=== PATIENT | female | born 1945 | race Caucasian/White ===

== ENCOUNTER → 2017-12-01 11:00 | Outpatient (CLI) | payer MEDICARE, OTHER, SELFPAY ==
--- NOTE | 2017-12-01 | DI.MG.S_ITS ---
BILATERAL DIGITAL SCREENING MAMMOGRAM 3D/2D WITH CAD: 12/01/2017 CLINICAL: Routine screening. Comparison is made to exams dated: 04/22/2016 mammogram, 11/28/2014 mammogram, and 01/30/2013 mammogram - [facility]. There are scattered fibroglandular elements in both breasts. Current study was also evaluated with a Computer Aided Detection (CAD) system. No significant masses, calcifications, or other findings are seen in either breast. There has been no significant interval change. IMPRESSION: NEGATIVE There is no mammographic evidence of malignancy. A 1 year screening mammogram is recommended. This exam was interpreted at Station ID: [id number]. NOTE: For mammograms, a report in lay terms will be sent to the patient. Approximately 15% of breast malignancies will not be visualized mammographically. In the management of a palpable breast mass, a negative mammogram must not discourage biopsy of a clinically suspicious lesion. Electronically Signed By: Antonino du/rober:12/01/2017 11:49:33 letter sent: Normal Exam ACR BI-RADS Category 1: Negative 3341F
== END ==
PROVIDERS: Family Provider Nurse Practitioner; PCP Nurse Practitioner; Visit Provider Family Medicine
DX: Z12.31 Encounter for screening mammogram for malignant neoplasm of breast (principal)
CPT/HCPCS: 77063; 77067

== ENCOUNTER → 2019-03-30 15:01 | Outpatient (CLI) | payer MEDICARE, OTHER, SELFPAY ==
--- NOTE | 2019-03-30 | DI.MG.S_ITS ---
BILATERAL DIGITAL SCREENING MAMMOGRAM 3D/2D WITH CAD: 03/30/2019 CLINICAL: Routine screening. Comparison is made to exams dated: 12/01/2017 mammogram, 04/22/2016 mammogram, and 11/28/2014 mammogram - [facility]. There are scattered fibroglandular elements in both breasts. Current study was also evaluated with a Computer Aided Detection (CAD) system. There are benign vascular calcifications in both breasts. No significant masses, calcifications, or other findings are seen in either breast. There has been no significant interval change. IMPRESSION: There is no mammographic evidence of malignancy. A 1 year screening mammogram is recommended. This exam was interpreted at Station ID: [id number]. NOTE: For mammograms, a report in lay terms will be sent to the patient. Approximately 15% of breast malignancies will not be visualized mammographically. In the management of a palpable breast mass, a negative mammogram must not discourage biopsy of a clinically suspicious lesion. Electronically Signed By: Linda mullins/rober:03/30/2019 16:02:36 letter sent: Normal Exam ACR BI-RADS Category 2: Benign Finding(s) 3342F
== END ==
PROVIDERS: PCP Nurse Practitioner; Visit Provider Family Medicine
DX: Z12.31 Encounter for screening mammogram for malignant neoplasm of breast (principal)
CPT/HCPCS: 77063; 77067

== ENCOUNTER 2019-08-16 07:43 | Day surgery (SDC) | payer MEDICARE, OTHER, SELFPAY ==
--- NOTE | 2019-08-16 | PATH_ITS ---
[facility] [place] Accession Number: [id number] . 01 Material submitted: . gastrointestinal site - GASTRIC BIOPSIES . 02 Diagnosis: Gastric Biopsies: Gastric body mucosa with mild chronic inflammation. Negative for Helicobacter organisms by immunohistochemistry. Negative for intestinal metaplasia. Negative for dysplasia or malignancy. V 08/20/2019 1352 Local . 02 Electronically signed: . Hiro Jones MD, PhD, Pathologist NPI- [id number] . 01 Gross description: . GASTRIC BIOPSIES: Received in formalin are multiple fragment(s) of hodge, soft tissue measuring 0.1 x 0.1 x 0.1 cm to 0.2 x 0.2 x 0.2 cm submitted entirely in 1 cassette(s) /[facility] 08/16/2019 2228 Local . 02 Microscopic: . An immunohistochemical stain was performed to evaluate for Helicobacter organisms and is negative. The control stain showed appropriate reactivity. . * This test was developed and its performance characteristics determined by [facility]. It has not been cleared or approved by the U.S. Food and Drug Administration. The FDA has determined that such clearance or approval is not necessary. This test is used for clinical purposes. It should not be regarded as investigational or for research. . 02 Pathologist provided ICD-10: K29.70 . 02 CPT . 643584, U08057 Performed at: 01 [facility] [address], [place], [place] [id number] MD Andrew Randhawa MD Phone: [phone] Performed at: 02 [facility] [place] [address] [place], [place] [id number] MD Gloria Ruiz MD Phone: [phone]
[2019-08-16 09:48] VITALS: BMI 34.9
[2019-08-16 09:53] VITALS: BP 130/71; PULSE 64; RESP 12; TEMP 36.1; O2SAT 100
--- NOTE | 2019-08-16 10:32 | PM.PREOP ---
Pre-operative Note Interval Note History & Physical reviewed/Exam performed by Physician: Yes Changes to H&P: No ASA Class (for procedural sedation): II
[2019-08-16] MEDS: LIDOCAINE 4% SOLN 50 ML 20 ML TOP (10:51)
[2019-08-16] MEDS: fentaNYL 250 MCG/5 ML INJ IV (10:52)
[2019-08-16] MEDS: MIDAZOLAM 5 MG/5 ML VIAL IV (10:52)
--- NOTE | 2019-08-16 10:52 | PM.OP.ENDO ---
Operative Date/Time/Diagnoses Date of procedure: 08/16/19 Time of procedure: 10:53 Pre-op diagnosis: Epigastric discomfort reflux disease Post-op diagnosis: same (Small patchy areas of significant gastritis with cobblestoning) Procedure & Clinicians Study performed: EGD with cold biopsy Same procedure as scheduled: Yes Indications: Evaluate reflux/epigastric pain Surgeon: Chilango Mac Procedure Notes SCOAP/Timeout: Performed Procedure in detail: The patient had topical anesthetic applied to oropharynx. She was placed in left lateral decubitus position and underwent IV sedation directed by the surgeon consisting of fentanyl and Versed. A bite block was inserted and the scope was advanced through it into the esophagus. The esophagus was unremarkable. GE junction was noted at 38 cm from the incisors. The stomach insufflated well. There were multiple red patchy lesions seen in the body, cardia and the incisura. The pyloric channel was narrowed but patent. The duodenum was unremarkable to the 4th part. The scope was brought back into the stomach and retroflexed. The proximal stomach was remarkable for the same areas of redness. Biopsies were taken of multiple red patches. The scope was straightened and brought out through the esophagus again. No lesions were seen. The scope was removed and the patient tolerated the procedure well. Scope withdrawal time: Not applicable Sedation minutes: 12 Findings: gastritis Specimen(s): other (Gastric biopsies) Complications: none Post-procedure Recommendations: Start medication(s) (Omeprazole) Plan for aftercare: Follow-up with your family doctor Follow up: as needed Disposition: PACU
[2019-08-16 10:58] VITALS: BP 122/61; PULSE 69; RESP 19; TEMP 36.2; O2SAT 97
[2019-08-16 11:03] VITALS: BP 117/54; PULSE 68; RESP 18; TEMP 36; O2SAT 100
[2019-08-16 11:08] VITALS: BP 103/70; PULSE 66; RESP 9; TEMP 36.1; O2SAT 99
[2019-08-16 11:27] VITALS: BP 117/76; PULSE 66; RESP 14; TEMP 36.1; O2SAT 99
== END 2019-08-16 11:38 | disposition home or self-care (01) ==
PROVIDERS: PCP Nurse Practitioner; Referring Provider Nurse Practitioner; Visit Provider Specialist
PROC: 0DJ08ZZ Inspection of Upper Intestinal Tract, Via Natural or Artificial Opening Endoscopic (ICD-10-PCS; CPT 43235; principal; 2019-08-16 10:45)
DX: K29.50 Unspecified chronic gastritis without bleeding (principal); K21.9 Gastro-esophageal reflux disease without esophagitis
CPT/HCPCS: 43239; 76700; 99152; J2250; J3010

== ENCOUNTER → 2019-08-16 07:56 | Outpatient (CLI) | payer MEDICARE, OTHER, SELFPAY ==
--- NOTE | 2019-08-16 07:58 | DI.US.S_ITS ---
PROCEDURE: US ABDOMEN COMPLETE INDICATIONS: NAUSEA TECHNIQUE: Real-time scanning was performed of the abdominal and retroperitoneal organs, with image documentation. COMPARISON: [facility], US, ABDOMEN COMPLETE, 05/11/2010, 13:48. FINDINGS: Liver: Liver is normal in size and homogeneous in echotexture, diffusely hyperechoic consistent with moderate fatty infiltration Gallbladder: The gallbladder appears normal. Biliary ducts: Intrahepatic bile ducts are non-dilated. Extrahepatic bile duct caliber measures 4.8 mm. Normal is 6-7 mm or less in diameter, or 10 mm or less post-cholecystectomy. Pancreas: Visualized portions of the pancreas are sonographically normal. Spleen: Spleen is normal in size and homogeneous in echotexture. Kidneys: Kidneys are normal in size and echotexture. Right kidney measures 10.2 cm long; left kidney measures 12.1 cm long. No hydronephrosis or nephrolithiasis. No solid masses. Aorta: Visualized aorta is normal in caliber at less than 3 cm. Iliacs: Not seen due to bowel gas. IVC: Intrahepatic inferior vena cava is patent. Miscellaneous: No free abdominal fluid. IMPRESSION: Moderate fatty infiltration throughout the liver. No acute disease is found. A source of nausea is not identified. Dictated by: Daniel Yang M.D. on 08/16/2019 at 9:31 Approved by: Daniel Yang M.D. on 08/16/2019 at 9:32
== END ==
PROVIDERS: PCP Nurse Practitioner; Referring Provider Specialist; Visit Provider Specialist
DX: R11.0 Nausea (principal)
CPT/HCPCS: 76700

== ENCOUNTER → 2021-10-14 11:22 | Outpatient (CLI) | payer MEDICARE, OTHER, SELFPAY ==
--- NOTE | 2021-10-14 11:25 | DI.MG.S_ITS ---
BILATERAL DIGITAL SCREENING MAMMOGRAM 3D/2D WITH CAD: 10/14/2021 CLINICAL: Routine screening. Comparison is made to exams dated: 03/30/2019 mammogram, 12/01/2017 mammogram, and 04/22/2016 mammogram - [facility]. There are scattered fibroglandular elements in both breasts. Current study was also evaluated with a Computer Aided Detection (CAD) system. There are benign vascular calcifications in both breasts. No significant masses, calcifications, or other findings are seen in either breast. There has been no significant interval change. IMPRESSION: BENIGN There is no mammographic evidence of malignancy. A 1 year screening mammogram is recommended. This exam was interpreted at Station ID: [id number]. NOTE: For mammograms, a report in lay terms will be sent to the patient. Approximately 15% of breast malignancies will not be visualized mammographically. In the management of a palpable breast mass, a negative mammogram must not discourage biopsy of a clinically suspicious lesion. Electronically Signed By: Luis Fernando Trammell M.D., jr/rober:10/14/2021 14:04:10 letter sent: Normal Exam ACR BI-RADS Category 2: Benign Finding(s) 3342F
== END ==
PROVIDERS: PCP Nurse Practitioner; Referring Provider Nurse Practitioner; Visit Provider Nurse Practitioner
DX: Z12.31 Encounter for screening mammogram for malignant neoplasm of breast (principal)
CPT/HCPCS: 77063; 77067

== ENCOUNTER 2021-11-25 14:47 | Emergency (ER) | payer MEDICARE, OTHER, SELFPAY ==
[2021-11-25 15:29] VITALS: BP 167/77; PULSE 66; RESP 16; TEMP 36.6; O2SAT 99; BMI 29.0
--- NOTE | 2021-11-25 19:15 | DI.CT.S_ITS ---
PROCEDURE: CT KIDNEY URETER BLADDER (KUB) INDICATIONS: left flank pain, hx stones TECHNIQUE: Axial sections were acquired from the lung bases to the pubic symphysis. Coronal and sagittal reformats were performed. For radiation dose reduction, the following was used: automated exposure control, adjustment of mA and/or kV according to patient size. COMPARISON: None. FINDINGS: Image quality: Excellent. Lung bases: Unremarkable. Heart: No significant findings. URINARY: Right Kidney: No stones or hydronephrosis. Right Ureter: No hydroureter. Left Kidney: No stones or hydronephrosis. Left Ureter: Possible 2 mm distal left ureteral stone best seen on axial image 55/series 2. No periureteral stranding. No hydroureter. Bladder: Normal wall thickness. No stones. ABDOMEN: Liver: Unremarkable. Gallbladder: Unremarkable. Biliary ducts: Unremarkable. Pancreas: Unremarkable. Spleen: Unremarkable. Adrenal Glands: Unremarkable. Stomach and Bowel: Stomach, small bowel loops, and colon are unremarkable. Normal appendix. Extensive scattered colonic diverticulosis without evidence for acute diverticulitis. Peritoneum: No abnormal intraperitoneal fluid. No free air. Ventral Wall: No hernia. Abdominal Nodes: No enlarged retroperitoneal or mesenteric lymph nodes. Vessels: Aorta and inferior vena cava are normal in size. PELVIS: Pelvic Organs: Unremarkable. Pelvic Nodes: Unremarkable. Miscellaneous: No inguinal hernias are seen. Bones:No acute vertebral body compression fractures. Multilevel spondylitic changes throughout the imaged spine. No suspicious osseous lesions. IMPRESSION: 1. Possible nonobstructing 2 mm distal left ureteral stone without associated hydroureteronephrosis or inflammatory stranding. Otherwise, no acute abnormalities identified in the abdomen or pelvis. 2. Scattered colonic diverticulosis without acute diverticulitis. 3. Normal appendix. Dictated by: Chano Chapman M.D. on 11/25/2021 at 19:50 Approved by: Chano Chapman M.D. on 11/25/2021 at 19:55
--- NOTE | 2021-11-25 19:15 | ED.FEMALEGU ---
HPI - Female Genitourinary <Gloria Locke [facility] - Last Filed: 11/25/21 20:25> General Chief complaint: Urogenital-Female Stated complaint: Thinks kidney stones Time Seen by Provider: 11/25/21 18:05 Source: patient Mode of arrival: Ambulatory History of Present Illness HPI Narrative: This is a 76-year-old female who presents to the emergency department complaining of history of two weeks of left flank pain, states that three days ago this improved after she drank lots of water, changed her diet to a ?kidney stone diet ?and was feeling much better. She states that this morning, she had left-sided flank pain again with nausea, states that she was feeling ill and she has been a little bit more active than usual over the last three days. She denies any vomiting, changes to her stool, denies any abdominal pain, states that it is more flank pain which radiates to her groin. She denies any obvious hematuria or abnormal vaginal discharge. Her only abdominal surgeries were C-sections. She denies any cough, fever, runny nose, chest pain, back pain other than flank pain or other symptoms currently. She denies taking any medication for pain thus far. Related Data Home Medications Medication Instructions Recorded Confirmed vitamin B complex 1 cap PO DAILY #0 12/21/10 08/16/19 antiarthritic combination no.2 900 mg PO 08/08/19 08/08/19 mg tablet (glucosamine-chondroitin) ascorbate calcium (vitamin C) 500 500 mg PO DAILY 08/08/19 08/16/19 mg tablet aspirin 81 mg tablet,delayed 81 mg PO DAILY 08/08/19 08/16/19 release calcium carbonate 500 mg calcium 500 mg PO DAILY 08/08/19 08/16/19 (1,250 mg) tablet (Calcium 500) cholecalciferol (vitamin D3) 100 4,000 unit PO DAILY 08/08/19 08/16/19 mcg (4,000 unit) capsule Previous Rx's Medication Instructions Recorded omeprazole 20 mg capsule,delayed 20 mg PO DAILY #30 cap 08/16/19 release diclofenac sodium 1 % topical gel 2 g TOPICAL QID PRN #100 g 11/25/21 tamsulosin 0.4 mg capsule 0.4 mg PO DAILY #10 cap 11/25/21 Allergies Allergy/AdvReac Type Severity Reaction Status Date / Time epinephrine [EPINEPHRINE] Allergy Severe hallucinati Verified 08/16/19 09:44 ons acetaminophen Allergy Unknown unknown Verified 08/16/19 09:44 bupivacaine [From Marcaine] Allergy Unknown psychosis Verified 08/16/19 09:44 diphenhydramine Allergy Unknown heart Verified 08/16/19 09:44 [From Benadryl] flutters ibuprofen Allergy Unknown Abdominal Verified 08/16/19 09:44 Pain Penicillins Allergy Unknown RASH & Verified 08/16/19 09:44 FAMILY HX OF BREATHING PROBS naproxen AdvReac Severe Abdominal Verified 08/16/19 09:44 Pain Review of Systems <LORNA Stuart - Last Filed: 11/25/21 20:25> Review of Systems Narrative: General: denies fever, chills Head/Neck: denies headache, neck pain Eyes: denies visual changes, eye pain Cardio: denies chest pain, palpitations Respiratory: denies shortness of breath, cough GI: Endorses having nausea, denies abdominal pain, vomiting, or diarrhea : denies dysuria, hematuria but endorses left-sided flank pain with radiation to the groin MSK: denies new joint pain, muscle weakness or swelling Skin: denies rash, itching or wound Neuro: denies numbness, tingling, dizziness Patient History <LORNA Stuart - Last Filed: 11/25/21 20:25> Surgical History Hx of section Family History Father Stroke Grandfather Diabetes mellitus alcohol intake frequency: a few times a month Substance Use Type: does not use Exam <LORNA Stuart - Last Filed: 11/25/21 20:25> Narrative Exam Narrative: Independently reviewed vitals signs and nursing notes. General: cooperative, comfortable, in no acute distress, well groomed Head: atraumatic, symmetrical facial expressions Neck: supple Eyes: equal round and reactive, EOMI, conjunctiva normal Nose: nares patent, no rhinorrhea Mouth/Throat: moist mucus membranes Cardiovascular: regular rate and rhythm, no peripheral edema, warm extremities Respiratory: normal effort, able to speak in complete sentences, no audible wheezing, stridor, or rales. No retractions or tachypnea. GI: abdomen soft, nontender to palpation, nondistended, no masses, no exquisite tenderness with exam, without guarding or rebound. Left CVA tenderness MSK: moves all extremities, neurovascularly intact, no weakness, normal tone Skin: brisk capillary refill, no rash, no erythema Neuro: normal speech and cognition, A&O x3 Psych: mental status is grossly normal, congruent mood, normal affect, pleasant and cooperative Initial Vital Signs Initial Vital Signs: Vital Signs Temperature 97.9 F 11/25/21 15:29 Pulse Rate 66 11/25/21 15:29 Respiratory Rate 16 11/25/21 15:29 Blood Pressure 167/77 H 11/25/21 15:29 Pulse Oximetry 99 11/25/21 15:29 <Zabrina Ribeiro DO - Last Filed: 11/26/21 20:12> Initial Vital Signs Initial Vital Signs: Vital Signs Temperature 97.9 F 11/25/21 15:29 Pulse Rate 66 11/25/21 15:29 Respiratory Rate 16 11/25/21 15:29 Blood Pressure 167/77 H 11/25/21 15:29 Pulse Oximetry 99 11/25/21 15:29 Course <LORNA Stuart - Last Filed: 11/25/21 20:25> Orders Ordered: Discontinued Medications Ketorolac Tromethamine (Ketorolac 30 Mg/Ml Vial) 15 mg IM NOW ONE Stop: 11/25/21 20:12 Last Admin: 11/25/21 20:30 Dose: Not Given Documented by: LYNN Tamsulosin HCl (Tamsulosin 0.4 Mg Capsule) 0.4 mg PO NOW ONE Stop: 11/25/21 20:12 Last Admin: 11/25/21 20:17 Dose: 0.4 mg Documented by: LYNN Vital Signs Vital signs: Vital Signs - 8 hr 11/25/21 15:29 Temperature 97.9 F Pulse Rate 66 Respiratory Rate 16 Blood Pressure 167/77 H Pulse Oximetry 99 <Zabrina Ribeiro DO - Last Filed: 11/26/21 20:12> Orders Ordered: Discontinued Medications Ketorolac Tromethamine (Ketorolac 30 Mg/Ml Vial) 15 mg IM NOW ONE Stop: 11/25/21 20:12 Last Admin: 11/25/21 20:30 Dose: Not Given Documented by: FLAVIAHOJUAN Tamsulosin HCl (Tamsulosin 0.4 Mg Capsule) 0.4 mg PO NOW ONE Stop: 11/25/21 20:12 Last Admin: 11/25/21 20:17 Dose: 0.4 mg Documented by: LYNN Vital Signs Vital signs: Vital Signs - 8 hr 11/25/21 15:29 Temperature 97.9 F Pulse Rate 66 Respiratory Rate 16 Blood Pressure 167/77 H Pulse Oximetry 99 MDM - Female Genitourinary <Gloria Locke, [facility] - Last Filed: 11/25/21 20:25> Lab Data Labs: Lab Results 11/25/21 Range/Units 16:30 Urine Color Yellow Urine Appearance Clear Urine pH 5.5 (4.5-8.0) Ur Specific [place] <=1.005 (1.000-1.035) Urine Protein Negative (Negative) Urine Glucose (UA) Negative (Negative) g/dL Urine Ketones Negative (NEGATIVE) Urine Occult Blood Negative (Negative) Urine Nitrate Negative (Negative) Urine Bilirubin Negative (NEGATIVE) Urine Urobilinogen 0.2 (0.2) E.U./dL Ur Leukocyte Esterase Negative (NEGATIVE) Urine RBC None seen (0-5/HPF) Urine WBC None seen (0-5/HPF) Ur Squamous Epith Cells None seen (0-5/HPF) Urine Bacteria None seen (None) Ur Culture Indicated? Cult not indicated Imaging Data CT scan - abdomen/pelvis: Radiologist's Impression: PROCEDURE:? CT KIDNEY URETER BLADDER (KUB) ? INDICATIONS:? left flank pain, hx stones ? TECHNIQUE:? Axial sections were acquired from the lung bases to the pubic symphysis.? Coronal and sagittal reformats were performed.? For radiation dose reduction, the following was used: ?automated exposure control, adjustment of mA and/or kV according to patient size.? ? COMPARISON:? None. ? FINDINGS:? Image quality:? Excellent.? ? Lung bases:? Unremarkable.? ? Heart:? No significant findings. ? URINARY: Right Kidney:? No stones or hydronephrosis.? Right Ureter:? No hydroureter.? ? Left Kidney:? No stones or hydronephrosis. Left Ureter:? Possible 2 mm distal left ureteral stone best seen on axial image 55/series 2. No periureteral stranding.? No hydroureter.? ? Bladder:? Normal wall thickness. No stones. ? ? ? ABDOMEN: Liver:? Unremarkable.? ? Gallbladder:? Unremarkable.? ? Biliary ducts:? Unremarkable.? ? Pancreas:? Unremarkable.? ? Spleen:? Unremarkable.? ? Adrenal Glands:? Unremarkable.? ? ? Stomach and Bowel:? Stomach, small bowel loops, and colon are unremarkable.? Normal appendix.? Extensive scattered colonic diverticulosis without evidence for acute diverticulitis. Peritoneum:? No abnormal intraperitoneal fluid.? No free air.? ? Ventral Wall: ? No hernia.? Abdominal Nodes:? No enlarged retroperitoneal or mesenteric lymph nodes.? Vessels:? Aorta and inferior vena cava are normal in size.? ? PELVIS: Pelvic Organs:? Unremarkable.? ? Pelvic Nodes: Unremarkable. Miscellaneous: No inguinal hernias are seen. ? ? ? Bones:No acute vertebral body compression fractures. Multilevel spondylitic changes throughout the imaged spine.? No suspicious osseous lesions. ? IMPRESSION:? ? 1. Possible nonobstructing 2 mm distal left ureteral stone without associated hydroureteronephrosis or inflammatory stranding.? Otherwise, no acute abnormalities identified in the abdomen or pelvis. ? 2. Scattered colonic diverticulosis without acute diverticulitis. ? 3. Normal appendix.? Dictated by: Chano Chapman M.D. on 11/25/2021 at 19:50 ? ? Approved by: Chano Chapman M.D. on 11/25/2021 at 19:55 ? [facility] Narrative Medical decision making narrative: This is a 76-year-old female who presents to the emergency department complaining of left-sided flank pain which has been ongoing for approximately two weeks. She has had similar symptoms in the past and started herself on a kidney stone diet, states that she felt better for the last three days but woke up today with left-sided flank pain again. Denies any dysuria, denies wanting any medication for nausea, denies fever or chills. CT abdomen pelvis shows nonobstructing 2 mm distal left ureteral stone without any associated hydro ureteral nephrosis or inflammatory stranding. Otherwise no acute abnormalities identified in the abdomen or pelvis. Incidentally scattered colonic diverticulosis without diverticulitis and a normal appendix was visualized. UA does not have any bacteria, wbc's, rbc's or nitrates. Patient was prescribed tamsulosin, she declined wanting any Toradol, states that she has high sensitivity to all medications. Encouraged her to stay hydrated and drink plenty of water, take tamsulosin and strain her urine and return for any new or worsening conditions. No peritoneal signs on abdominal exam. Patient remains p.o. tolerant. Serial abdominal exam without increase in abdominal pain. Given history and exam, low suspicion for acute abdominal process, such as acute cholecystitis, pancreatitis, perforated viscus, atypical appendicitis, colitis, diverticulitis or torsion. Extensive conversation about ER return precautions and need for close follow-up. Patient is appropriate and amenable to discharge home. Vital signs are stable on repeat examination is unremarkable. Patient has been informed of results. Patient has been given strict return to ER precautions for any new or worsening symptoms. Patient understands to follow up closely with outpatient providers as instructed. Patient understands plan and agrees to discharge home. All questions and concerns answered at this time. <Zabrina Ribeiro, - Last Filed: 11/26/21 20:12> Lab Data Labs: Lab Results 11/25/21 Range/Units 16:30 Urine Color Yellow Urine Appearance Clear Urine pH 5.5 (4.5-8.0) Ur Specific [place] <=1.005 (1.000-1.035) Urine Protein Negative (Negative) Urine Glucose (UA) Negative (Negative) g/dL Urine Ketones Negative (NEGATIVE) Urine Occult Blood Negative (Negative) Urine Nitrate Negative (Negative) Urine Bilirubin Negative (NEGATIVE) Urine Urobilinogen 0.2 (0.2) E.U./dL Ur Leukocyte Esterase Negative (NEGATIVE) Urine RBC None seen (0-5/HPF) Urine WBC None seen (0-5/HPF) Ur Squamous Epith Cells None seen (0-5/HPF) Urine Bacteria None seen (None) Ur Culture Indicated? Cult not indicated Discharge Plan Departure Patient Disposition: Home Clinical Impression: Calculus, ureter Instructions: DI for Kidney Stones Activity Restrictions/Additional Instructions: *You have been diagnosed with a very small nonobstructing 2 mm stone in your left ureter without any kidney or ureter swelling or surrounding inflammation. Your colon has diverticulosis without any diverticulitis which is good that would need it would be infected in and did not. Your appendix is normal. No other abnormal findings were found on your CT scan. Your urine did not have any abnormal finding. Please take Flomax once a day until your pain is gone. This will to dilate the ureter to get it out of there. Stay hydrated, continue drinking plenty of water, take ibuprofen if you needed for pain, it will help with the pain the most or try Tylenol but the anti-inflammatory will be helpful. I have sent diclofenac gel to the pharmacy, you may try this to see if it helps at all. I wish you the best, if you have any complications from this, please return to the emergency department. I hope you feel better soon *What to do: *Please continue to take your regular medications as directed. x[ ] New medication prescriptions sent to your pharmacy: [[facility] ] [ ] New medication written as a paper prescription [ ] No new medications given *Please follow up with your primary care provider in 2-3 days, call for an appointment. Let them know you were seen in the Emergency Department and that we asked that you be seen for follow-up. We will electronically transmit a record of today's note if your PCP is in our system *If you do not have a primary care provider please contact [phone] to establish care with one of the [facility] primary care providers. *Return to Emergency Department if you should have any new, worsening or concerning symptoms, such as [fever greater than 101F, chills, worsening pain, persistent vomiting or other bothersome symptoms] Prescriptions: New tamsulosin 0.4 mg capsule 0.4 mg PO DAILY Qty: 10 0RF diclofenac sodium 1 % gel 2 g topical QID PRN (Reason: to left flank area for pain.) Qty: 100 0RF No Action vitamin B complex Capsule 1 cap PO DAILY Qty: 0 0RF ascorbate calcium (vitamin C) 500 mg tablet 500 mg PO DAILY 0RF glucosamine-chondroitin 900 mg tablet PO 0RF calcium carbonate [Calcium 500] 500 mg calcium (1,250 mg) tablet 500 mg PO DAILY 0RF cholecalciferol (vitamin D3) 4,000 unit capsule 4,000 unit PO DAILY 0RF aspirin 81 mg tablet,delayed release (DR/EC) 81 mg PO DAILY 0RF omeprazole 20 mg capsule,delayed release(DR/EC) 20 mg PO DAILY Qty: 30 3RF Referrals: Mandi Bhardwaj ARNP [Primary Care Provider] - Visit Report Forms: Patient Portal/API <Zabrina Ribeiro DO - Last Filed: 11/26/21 20:12> Cosign ED Attending Cosaceature Attestation: I was immediately available in the department for consultation. Documentation has been reviewed.
[2021-11-25 19:31] LABS: Appearance Urine UA CLEAR; Bilirubin Urine UA NEGATIVE (NEGATIVE); Color Urine UA YELLOW; Glucose Urine UA NEGATIVE (Negative); Ketones Urine UA NEGATIVE (NEGATIVE); Leukocyte Esterase Urine UA NEGATIVE (NEGATIVE); Nitrite Urine UA NEGATIVE (Negative); Occult Blood Urine UA NEGATIVE (Negative); Protein Urine UA NEGATIVE (Negative); Specific Gravity Urine UA <=1.005 (1.000-1.035); Urobilinogen Urine UA 0.2 E.U./dL (0.2)
[2021-11-25 19:34] LABS: pH Urine UA 5.5 (4.5-8.0)
[2021-11-25 19:35] LABS: Bacteria Urine None Seen; Culture Indicated Urine Cult Not Indicated; RBC Urine None Seen (0-5/HPF); Squamous Epithelial Cell Urine None Seen (0-5/HPF); WBC Urine None Seen (0-5/HPF)
[2021-11-25] MEDS: TAMSULOSIN 0.4 MG CAPSULE PO (20:17)
== END 2021-11-25 20:31 | disposition home or self-care (01) ==
PROVIDERS: Emergency Provider Nurse Practitioner Critical Care Medicine; PCP Nurse Practitioner
DX: N20.1 Calculus of ureter (principal); R11.0 Nausea; Z87.442 Personal history of urinary calculi
CPT/HCPCS: 74176; 81001; 99283; 99284

== ENCOUNTER → 2021-12-16 14:53 | Outpatient (CLI) | payer MEDICARE, OTHER, SELFPAY ==
--- NOTE | 2021-12-16 15:06 | DIET.CONS ---
Dietary Consultation Note Assessment: 76y [address] visit for help with hyperglycemia and kidney stones. Pt meeting c this RD rather than DM educator as she desired expedited visit for kidney stones, which is focus of visit. Pt has hx kidney stones with latest resulting in ED visit in early November. Pt has never met with urologist or had Litholink test to identify source of stone or risk factors. A1c currently 6.3 at highest 7.0, was 6.4 in 2016. using glucometer- wide range of FBGs 98-186 since Jun 2021 with averages in 100-120 range. Pt with no current DM medication use, desires to manage with lifestyle. Usual Day: wakes 8:30-9am Rooibos or decaf coffee B(9:30am): 10-12 blueberries or strawberries, orange slices, hb egg, broccoli cauliflower sometimes oatmeal or 1TB no sugar granola, 15 blueberries, 3 pieces chicken 4:30pm: lentil soup, veggie meatballs, avocado toast, or rye cracker 8:30pm: maybe mix of variety of foods such as: hummus, broccoli, oatmeal, watermelon, prune, sometimes cheese- Mozzarella, [place] water and rooibos tea Physical Activity- gardening, walking, home and yard projects- no regular exercise routine for the sake of exercise. October 16 FBGs 134-142 (high side) Day 1: few potatoes, salad no dressing, prunes, almonds, decaf coffee Day 2: pear, whole wheat toast, chili, cheese, veggie soup c grated cheese, small chocolate Day 3: prune, tofu sticks, beans, 1/4c almonds, 2 veggie meatballs, pea soup, end of ww bread, 2 piece chocolate, rooibos tea Aug 15 FBG 163 2 prunes, 3 piece tofu, 1/4c beans, buttered rye toast, 1 tbs pb, chili, spinach salad, cabbage c 1 tbs dressing, 2 piece tofu, 1/2 piece fish, 1 inch chocolate, (ate late) December 07, , FBG 97-115 Day 1: no sugar granola, 15 blueberries, 3 pieces chicken, 1/2 inch cheese, rye cracker, broccoli, cauliflower, 1 slice pizza Day 2: blueberries, broccoli, cauliflower, hb egg, lentil soup, 1.5 [employer] veggie meatballs, salad, avocado, 2/3in rye cracker RD Impression: Pt states she is not passionate about eating, eats more for utility. Pt very keyed in to avoiding oxalate containing foods- limits many foods. Pt would benefit from Litholink test to identify risk factors for kidney stone formation to help direct interventions for as unrestricted diet as possible. Pt with elevated FBG despite very low intake carbohydrates, high intake dietary fiber, and little to no intake sugar. Pt would benefit from consult with DM educator to help with BG management. Nutrition Diagnosis: nutrition related knowledge deficit r/t diet to support both DM2 and high risk kidney stone formation aeb pt c elevated FBG (98-135), pt with hx kidney stones-uncharacterized, pt limiting diet in respect to carbohydrate foods and oxalate containing foods, pt comes to visit with many questions. Interventions: 1. Recc PCP order Litholink test for more direction on dietary interventions to reduce risk of stone formation. 2. Provided calcium content of vegetarian foods handout for non-dairy calcium sources to include at meals and snacks to bind free oxalate. High oxalate items noted on handout. 2. Recc pt start drinking Cipriano tea daily as she enjoys tea- this is shown to reduce risk stone formation, will not elevate BG. 3. Recc adding squeeze lemon to water to increase intake fluids and increase urine citrate levels to reduce stone formation risk without elevating BG. 4. Recc pt start spot checking and recording post-prandial blood sugar (1h after start of meal) to review results with DM educator and get better idea of how body is processing variety of foods. 5. Because pt has seen PP BGs as low as 101, recc pt spot check BG if wakes in night to see trajectory of BG- bossman effect? Monitoring/Evaluations: virtual f/u c DM educator in late December to review BG logs. Electronically Signed by: Marisol Black 12/16/21 15:06 Clinical Dietitian [address] [id number]
== END ==
PROVIDERS: PCP Nurse Practitioner; Referring Provider Nurse Practitioner; Visit Provider Nurse Practitioner
DX: E11.65 Type 2 diabetes mellitus with hyperglycemia (principal); N20.0 Calculus of kidney; Z71.3 Dietary counseling and surveillance
CPT/HCPCS: 97802

== ENCOUNTER 2021-12-17 21:05 | Emergency (ER) | payer MEDICARE, OTHER, SELFPAY ==
[2021-12-17 21:14] VITALS: BP 144/64; PULSE 93; RESP 20; TEMP 38.5; O2SAT 98; BMI 28.7
[2021-12-17 22:28] VITALS: TEMP 37.9
[2021-12-17 22:42] LABS: RBC Urine 0-1/HPF (0-5/HPF); Squamous Epithelial Cell Urine 1-5 /HPF (0-5/HPF); WBC Urine 0-1/HPF (0-5/HPF)
[2021-12-17 22:43] LABS: Bacteria Urine Moderate (10-30); Hyaline Casts Urine 1-5/LPF; Mucus Urine 1+ (Negative)
[2021-12-17 22:44] LABS: Add Manual Diff / Slide Review NO; Basophils Absolute Auto 0 /uL (0-100); Basophils Percent Auto 0.1 % (0-2); Eosinophils Absolute Auto 0 /uL (0-450); Hematocrit 44.3 % (36-46); Hemoglobin 15.2 g/dL (12.0-16.0); Lymphocytes Absolute Auto 800 /uL (1100-4500); Lymphocytes Percent Auto 8.2 % (25-40); Mean Corpuscular HGB Conc 34.3 % (30-36); Mean Corpuscular Hemoglobin 29.6 PG (26-34); Mean Corpuscular Volume 86.4 fL (80-100); Monocytes Absolute Auto 800 /uL (0-900); Monocytes Percent Auto 8.2 % (3-14); Neutrophils Absolute Auto 7700 /uL (1500-7000); Neutrophils Percent Auto 83.5 % (50-75); Platelet Count 149 X10^3/uL (150-400); Red Blood Cell Count 5.12 X10^6/uL (4.0-5.2); Red Cell Distribution Width 14.2 % (11.6-14.8); White Blood Cell Count 9.3 X10^3/uL (4.5-11.0)
[2021-12-17 22:50] LABS: COVID19 -Nasal RAPID Negative (Negative)
--- NOTE | 2021-12-17 22:50 | ED_ITS ---
HPI - Fall General Chief Complaint: Fall Stated Complaint: fever Time Seen by Provider: 12/17/21 22:39 Source: patient Mode of arrival: Ambulatory History of Present Illness HPI Narrative: Patient here with . Complains of fever past couple days. Also urinary frequency and urgency. Had a episode of urine incontinence yesterday. Today she was in a hurry to get to the bathroom and bumped her right anterior superior iliac spine on the right side against a kitchen sink. Denies any other injury. No cough cold congestion. Fever noted here. Patient states cannot take Tylenol or ibuprofen because it hurts her stomach too much. However, she states only aspirin can help her fever without any discomfort. Related Data Home Medications Medication Instructions Recorded Confirmed vitamin B complex 1 cap PO DAILY ##0 12/21/10 08/16/19 antiarthritic combination no.2 900 mg PO 08/08/19 08/08/19 mg tablet (glucosamine-chondroitin) ascorbate calcium (vitamin C) 500 500 mg PO DAILY 08/08/19 08/16/19 mg tablet aspirin 81 mg tablet,delayed 81 mg PO DAILY 08/08/19 08/16/19 release calcium carbonate 500 mg calcium 500 mg PO DAILY 08/08/19 08/16/19 (1,250 mg) tablet (Calcium 500) cholecalciferol (vitamin D3) 100 4,000 unit PO DAILY 08/08/19 08/16/19 mcg (4,000 unit) capsule Previous Rx's Medication Instructions Recorded omeprazole 20 mg capsule,delayed 20 mg PO DAILY Epigastric pain #30 08/16/19 release caps diclofenac sodium 1 % topical gel 2 g topical QID PRN to left flank 11/25/21 area for pain. #100 grams tamsulosin 0.4 mg capsule 0.4 mg PO DAILY kidney stone in 11/25/21 ureter #10 caps sulfamethoxazole 800 1 tab PO BID #10 tabs 12/17/21 mg-trimethoprim 160 mg tablet (Bactrim DS) Allergies Allergy/AdvReac Type Severity Reaction Status Date / Time epinephrine [EPINEPHRINE] Allergy Severe hallucinati Verified 08/16/19 09:44 ons acetaminophen Allergy Unknown unknown Verified 08/16/19 09:44 bupivacaine [From Marcaine] Allergy Unknown psychosis Verified 08/16/19 09:44 diphenhydramine Allergy Unknown heart Verified 08/16/19 09:44 [From Benadryl] flutters ibuprofen Allergy Unknown Abdominal Verified 08/16/19 09:44 Pain Penicillins Allergy Unknown RASH & Verified 08/16/19 09:44 FAMILY HX OF BREATHING PROBS naproxen AdvReac Severe Abdominal Verified 08/16/19 09:44 Pain Review of Systems Review of Systems Narrative: GENERAL: Positive for chills, fatigue, malaise, fever, sweats. HEENT: Denies sinus pain, ear pain, sore throat RESPIRATORY: Denies dyspnea, cough CARDIOVASCULAR: Denies chest pain, palpitations GASTROINTESTINAL: Denies nausea, vomiting, abdominal pain : Positive for dysuria, frequency, negative for hematuria MUSCULOSKELETAL: Positive for muscle or bony pain SKIN: Denies rash, skin lesions NEUROLOGIC: Denies weakness, numbness ROS Unobtainable: All systems reviewed & are unremarkable except as noted in HPI and below Patient History Surgical History Hx of section Family History Father Stroke Grandfather Diabetes mellitus Social History marital status: household members: spouse Smoking Status: Never smoker alcohol intake: never substance use type: does not use Smoking Status: Never smoker alcohol intake frequency: a few times a month Substance Use Type: does not use Exam Narrative Exam Narrative: GENERAL: in no distress, not toxic not dyspneic HEAD: Normocephalic. EYES: Pupils equal round No scleral icterus. ENT: Mucous membranes moist. NECK: Trachea midline. CARDIOVASCULAR: Regular rate and rhythm without murmurs RESPIRATORY: Clear to auscultation. Breath sounds equal bilaterally. No wheezes, rales, or rhonchi. GASTROINTESTINAL: Abdomen soft, non-tender, no peritoneal signs. No CVA te nderness. Bowel sounds present EXTREMITIES: No gross deformities. Nontender bilateral pelvis. No ecchymosis or skin injury on the anterior superior iliac spine. BACK: No flank tenderness. No CVA tenderness NEURO: AOx4. SKIN: Warm and dry PSYCH: Not anxious, is cooperative Initial Vital Signs Initial Vital Signs: Vital Signs Temperature 101.3 F H 12/17/21 21:14 Pulse Rate 93 H 12/17/21 21:14 Respiratory Rate 20 12/17/21 21:14 Blood Pressure 144/64 H 12/17/21 21:14 Pulse Oximetry 98 12/17/21 21:14 Oxygen Delivery Method 12/17/21 21:14 Course Course Course Narrative: No new issues during course of stay Orders Ordered: Discontinued Medications Aspirin (Aspirin 81 Mg Chew Tab) 324 mg PO NOW ONE Stop: 12/17/21 23:13 Last Admin: 12/17/21 23:15 Dose: 324 mg Documented By: HERNANDO Trimethoprim/Sulfamethoxazole (Trimeth/Sulfa 160/800 (Ds) Tablet) 1 tab PO NOW ONE Stop: 12/17/21 23:30 Last Admin: 12/17/21 23:35 Dose: 1 tab Documented By: HERNANDO Reevaluation(s) Reevaluation #1: Reviewed results with patient likely UTI causing fever and symptoms she is experiencing. Return precautions reviewed with her. Follow-up with primary care reviewed with her. They desire discharge home. Time: 23:30 Vital Signs Vital signs: Vital Signs - 8 hr 12/17/21 21:14 12/17/21 22:28 Temperature 101.3 F H 100.2 F H Pulse Rate 93 H Respiratory Rate 20 Blood Pressure 144/64 H Pulse Oximetry 98 Oxygen Delivery Method Room Air MDM - Fall Differential Diagnosis Differential diagnosis: Likely other (Viral syndrome/UTI/contusion/fracture) Lab Data Result diagrams: 12/17/21 22:22 12/17/21 22:22 Labs: Lab Results 12/17/21 12/17/21 12/17/21 Range/Units 22:15 22:16 22:22 WBC 9.3 (4.5-11.0) X10^3/uL RBC 5.12 (4.0-5.2) X10^6/uL Hgb 15.2 (12.0-16.0) g/dL Hct 44.3 (36-46) % MCV 86.4 (80-100) fL MCH 29.6 (26-34) PG MCHC 34.3 (30-36) % RDW 14.2 (11.6-14.8) % Plt Count 149 L (150-400) X10^3/uL Neut % (Auto) 83.5 H (50-75) % Lymph % (Auto) 8.2 L (25-40) % [place] % (Auto) 8.2 (3-14) % Eos % (Auto) 0.0 L (2-4) % Baso % (Auto) 0.1 (0-2) % Neut # (Auto) 7700 H (7083-0410) /uL Lymph # (Auto) 800 L (9893-2656) /uL [place] # (Auto) 800 (0-900) /uL Eos # (Auto) 0 (0-450) /uL Baso # (Auto) 0 (0-100) /uL Sodium (137-145) mmol/L Potassium (3.4-5.1) mmol/L Chloride (98-107) mmol/L Carbon Dioxide (22-32) mmol/L BUN (7-17) mg/dL Creatinine (0.52-1.04) mg/dL Estimated GFR (>60) mL/min BUN/Creatinine Ratio (6-22) Glucose (80-110) mg/dL Lactate (0.7-2.1) mmol/L Calcium (8.4-10.2) mg/dL Total Bilirubin (0.2-1.3) mg/dL AST (14-36) IU/L ALT (<35) IU/L Alkaline Phosphatase (38-126) U/L Total Protein (6.3-8.2) g/dL Albumin (3.5-5.0) g/dL Globulin (1.7-4.1) g/dL Albumin/Globulin Ratio (1.0-2.8) Procalcitonin (<0.5) ng/mL Urine RBC 0-1/hpf (0-5/HPF) Urine WBC 0-1/hpf (0-5/HPF) Ur Squamous Epith Cells 1-5 /hpf (0-5/HPF) Urine Bacteria Moderate (10-30) H (None) Hyaline Casts 1-5/lpf (None) Urine Mucus 1+ H (Negative) Ur Culture Indicated? Culture not indicate SARS-CoV-2 (PCR) Negative (Negative) 12/17/21 12/17/21 Range/Units 22:22 22:22 WBC (4.5-11.0) X10^3/uL RBC (4.0-5.2) X10^6/uL Hgb (12.0-16.0) g/dL Hct (36-46) % MCV (80-100) fL MCH (26-34) PG MCHC (30-36) % RDW (11.6-14.8) % Plt Count (150-400) X10^3/uL Neut % (Auto) (50-75) % Lymph % (Auto) (25-40) % [place] % (Auto) (3-14) % Eos % (Auto) (2-4) % Baso % (Auto) (0-2) % Neut # (Auto) (4019-7129) /uL Lymph # (Auto) (7551-5248) /uL [place] # (Auto) (0-900) /uL Eos # (Auto) (0-450) /uL Baso # (Auto) (0-100) /uL Sodium 135 L (137-145) mmol/L Potassium 3.7 (3.4-5.1) mmol/L Chloride 100 (98-107) mmol/L Carbon Dioxide 27 (22-32) mmol/L BUN 6 L (7-17) mg/dL Creatinine 0.71 (0.52-1.04) mg/dL Estimated GFR > 60 (>60) mL/min BUN/Creatinine Ratio 8.5 (6-22) Glucose 188 H (80-110) mg/dL Lactate 1.5 (0.7-2.1) mmol/L Calcium 8.7 (8.4-10.2) mg/dL Total Bilirubin 0.7 (0.2-1.3) mg/dL AST 28 (14-36) IU/L ALT 18 (<35) IU/L Alkaline Phosphatase 48 (38-126) U/L Total Protein 7.7 (6.3-8.2) g/dL Albumin 4.2 (3.5-5.0) g/dL Globulin 3.5 (1.7-4.1) g/dL Albumin/Globulin Ratio 1.2 (1.0-2.8) Procalcitonin 0.14 (<0.5) ng/mL Urine RBC (0-5/HPF) Urine WBC (0-5/HPF) Ur Squamous Epith Cells (0-5/HPF) Urine Bacteria (None) Hyaline Casts (None) Urine Mucus (Negative) Ur Culture Indicated? SARS-CoV-2 (PCR) (Negative) Urine Dip Bedside Urine Glucose 500 mg/dl Bedside Urine Bilirubin - Negative Bedside Urine Ketone ++ 40 Urine Specific Dun[place] 1.020 Bedside Urine Occult Blood + Bedside Urine pH 6.0 Bedside Urine Protein + 30 Bedside Urine Urobilinogen - Negative Bedside Urine Nitrite - Negative Bedside Urine Leukocytes - Negative Esterase MDM Narrative Medical decision making narrative: Appropriate for discharge home. No imaging indicated for patient injury to the right pelvis area. Reassuring exam. Return precautions reviewed with patient and . They do desire discharge home. Antibiotics started here. Patient did have kidney stone earlier this month however those symptoms resolved. Denies any flank pain or back pain. Only injury to the right hemipelvis from running into the sink. Discharge Plan Departure Patient Disposition: Home Clinical Impression: Acute UTI Instructions: DI for Urinary Tract Infection (UTI) Activity Restrictions/Additional Instructions: Keep well hydrated. See family doctor within a week for recheck. Be sure to continue antibiotics tomorrow. May continue home aspirin for fever control. Return if worsening questions or concerns. Prescription for Bactrim DS has been provided for you. Prescriptions: New sulfamethoxazole-trimethoprim [Bactrim DS] 800-160 mg tablet 1 tab PO BID Qty: 10 0RF No Action vitamin B complex Capsule 1 cap PO DAILY Qty: 0 ascorbate calcium (vitamin C) 500 mg tablet 500 mg PO DAILY glucosamine-chondroitin 900 mg tablet PO calcium carbonate [Calcium 500] 500 mg calcium (1,250 mg) tablet 500 mg PO DAILY cholecalciferol (vitamin D3) 4,000 unit capsule 4,000 unit PO DAILY aspirin 81 mg tablet,delayed release (DR/EC) 81 mg PO DAILY tamsulosin 0.4 mg capsule 0.4 mg PO DAILY Qty: 10 0RF diclofenac sodium 1 % gel 2 g topical QID PRN (Reason: to left flank area for pain.) Qty: 100 0RF omeprazole 20 mg capsule,delayed release(DR/EC) 20 mg PO DAILY Qty: 30 3RF Referrals: Mandi Bhardwaj ARNP [Primary Care Provider] - Visit Report Forms: Patient Portal/API
[2021-12-17 22:54] LABS: Alanine Aminotransferase 18 IU/L (<35); Albumin 4.2 g/dL (3.5-5.0); Albumin Globulin Ratio 1.2 (1.0-2.8); Alkaline Phosphatase 48 U/L (38-126); Aspartate Aminotransferase 28 IU/L (14-36); BUN Creatinine Ratio 8.5 (6-22); Bilirubin Total 0.7 mg/dL (0.2-1.3); Blood Urea Nitrogen 6 mg/dL (7-17); Calcium 8.7 mg/dL (8.4-10.2); Carbon Dioxide 27 mmol/L (22-32); Chloride 100 mmol/L (98-107); Estimated Glomerular Filt Rate > 60 mL/min (>60); Globulin 3.5 g/dL (1.7-4.1); Glucose 188 mg/dL (80-110); HEMOLYSIS < 15 (0-50); Potassium 3.7 mmol/L (3.4-5.1); Sodium 135 mmol/L (137-145); Total Protein 7.7 g/dL (6.3-8.2)
[2021-12-17 22:55] LABS: Lactate (Lactic Acid) 1.5 mmol/L (0.7-2.1)
[2021-12-17 23:11] LABS: Procalcitonin 0.14 ng/mL (<0.5)
[2021-12-17] MEDS: ASPIRIN 81 MG CHEW TAB 324 MG PO (23:15)
[2021-12-17] MEDS: TRIMETH/SULFA 160/800 (DS) TABLET 1 TAB PO (23:35)
[2021-12-17 23:40] VITALS: BP 136/60; PULSE 73; RESP 18; O2SAT 97
== END 2021-12-17 23:44 | disposition home or self-care (01) ==
PROVIDERS: Emergency Provider Emergency Medicine; PCP Nurse Practitioner
DX: N39.0 Urinary tract infection, site not specified (principal); Z20.822 Contact with and (suspected) exposure to COVID-19
CPT/HCPCS: 36415; 80053; 81003; 81015; 83605; 84145; 85025; 87040; 87086; 87635; 99283; 99284; C9803

== ENCOUNTER 2021-12-26 15:47 | Emergency (ER) | payer MEDICARE, OTHER, SELFPAY ==
[2021-12-26] VITALS (7 sets, daily range): BP systolic 119; BP diastolic 73; PULSE 51–72; RESP 18; TEMP 36.4; O2SAT 95–100; BMI 28.6
[2021-12-26 16:59] LABS: Add Manual Diff / Slide Review NO; Basophils Absolute Auto 100 /uL (0-100); Basophils Percent Auto 1.3 % (0-2); Eosinophils Absolute Auto 100 /uL (0-450); Eosinophils Percent Auto 1.3 % (2-4); Hematocrit 43.1 % (36-46); Hemoglobin 14.5 g/dL (12.0-16.0); Lymphocytes Absolute Auto 1500 /uL (1100-4500); Mean Corpuscular HGB Conc 33.6 % (30-36); Mean Corpuscular Volume 86.5 fL (80-100); Monocytes Absolute Auto 500 /uL (0-900); Monocytes Percent Auto 7.4 % (3-14); Neutrophils Absolute Auto 4200 /uL (1500-7000); Platelet Count 310 X10^3/uL (150-400); Red Blood Cell Count 4.98 X10^6/uL (4.0-5.2); Red Cell Distribution Width 13.6 % (11.6-14.8); White Blood Cell Count 6.3 X10^3/uL (4.5-11.0)
[2021-12-26 17:05] LABS: Alanine Aminotransferase 23 IU/L (<35); Albumin 3.7 g/dL (3.5-5.0); Albumin Globulin Ratio 1.2 (1.0-2.8); Alkaline Phosphatase 71 U/L (38-126); Aspartate Aminotransferase 26 IU/L (14-36); BUN Creatinine Ratio 18.3 (6-22); Bilirubin Total 0.5 mg/dL (0.2-1.3); Blood Urea Nitrogen 13 mg/dL (7-17); Calcium 8.7 mg/dL (8.4-10.2); Carbon Dioxide 25 mmol/L (22-32); Chloride 104 mmol/L (98-107); Estimated Glomerular Filt Rate > 60 mL/min (>60); Globulin 3.2 g/dL (1.7-4.1); Glucose 110 mg/dL (80-110); HEMOLYSIS < 15 (0-50); Lipase 344 U/L (23-300); Sodium 138 mmol/L (137-145); Total Protein 6.9 g/dL (6.3-8.2)
== END 2021-12-26 19:18 | disposition left against medical advice (07) ==
PROVIDERS: Emergency Medicine; Emergency Provider Emergency Medicine; PCP Nurse Practitioner
DX: R10.9 Unspecified abdominal pain (principal)
CPT/HCPCS: 36415; 80053; 81003; 83690; 85025; 99283

== ENCOUNTER → 2021-12-30 14:05 | Outpatient (CLI) | payer MEDICARE, OTHER, SELFPAY ==
--- NOTE | 2021-12-30 14:08 | DI.CT.S_ITS ---
PROCEDURE: CT KIDNEY URETER BLADDER (KUB) INDICATIONS: Flank pain TECHNIQUE: Axial sections were acquired from the lung bases to the pubic symphysis. Coronal and sagittal reformats were performed. For radiation dose reduction, the following was used: automated exposure control, adjustment of mA and/or kV according to patient size. COMPARISON: [facility], CT, CT KIDNEY URETER BLADDER (KUB), 11/25/2021, 19:17. FINDINGS: Image quality: Excellent. Lung bases: No pleural effusion. Opacity at the right middle lobe partially visualized. Heart: No significant findings. URINARY: Right Kidney: No stones or hydronephrosis. Right Ureter: No hydroureter. Left Kidney: No stones or hydronephrosis. Small low-density exophytic cysts. Left Ureter: No hydroureter. Bladder: Not distended. No stones. ABDOMEN: Liver: Unremarkable. Gallbladder: Unremarkable. Biliary ducts: Unremarkable. Pancreas: Unremarkable. Spleen: Unremarkable. Adrenal Glands: Unremarkable. Stomach and Bowel: Stomach, small bowel loops, and colon are unremarkable. Diverticulosis. Normal appendix. Peritoneum: No abnormal intraperitoneal fluid. No free air. Ventral Wall: No hernia. Abdominal Nodes: No enlarged retroperitoneal or mesenteric lymph nodes. Vessels: Aorta and inferior vena cava are normal in size. PELVIS: Pelvic Organs: Anteverted uterus. Pelvic Nodes: Unremarkable. Miscellaneous: No definite inguinal hernias are seen. Bones: No compression fracture. Multilevel DDD. IMPRESSION: 1. No kidney stones. No hydronephrosis. 2. Diverticulosis. 3. Opacity in the right middle lobe partially visualized. This could represent atelectasis or pneumonia. Dictated by: Garett Ennis M.D. on 12/30/2021 at 18:04 Approved by: Garett Ennis M.D. on 12/30/2021 at 18:14
== END ==
PROVIDERS: PCP Family Medicine; Referring Provider Specialist; Visit Provider Specialist
DX: N20.0 Calculus of kidney (principal); K57.90 Diverticulosis of intestine, part unspecified, without perforation or abscess without bleeding
CPT/HCPCS: 74176

== ENCOUNTER → 2022-01-20 13:33 | Outpatient (CLI) | payer MEDICARE, OTHER, SELFPAY ==
--- NOTE | 2022-01-26 11:37 | DIAB.MNT ---
Initial Diabetes Medical Nutrition Therapy Assessment Name: Aby Plata Date: 01/20/22 Time: 230-335p Dx: Type II Diabetes Aby presents for initial visit via [employer] platform. She reports newly diagnosed with DM. Has seen Marisol FARRIS for kidney stone MNT. Plans to complete Litholink test with provider. Today she reports a FH of DM with maternal grandfather T1DM, bu tno other DM in the family. She does report h/o large babies but no GDM diagnosis (10# 12oz, 11# 15.5oz). States she has cut out sugar and reduced overall carb intake. This has resulted in a 25# weight loss per report. Today her main concerns are why her FBG have gone up >100 mg/dL and how eating impacts BG. Diet Recall: Wake 9-10a 930a: fish with ?c watermelon and 10-12 blueberries ; chicken, 2 TBS peas 1230-1p: half apple, half bagel dry ; flaxseed low carb granola x 3 TBS with melon x 1/2c 7p: salad, ? avocado, cheese slice, rye cracker, chicken Sn: nothing or cheese Anthropometrics: Wt: 165# reported Weight history: UBW reported: 190# Physical Activity: inconsistent, ADLs mostly, use to walk a mi before, daily walks before Self-Monitoring Blood Glucose: All BG in goal for well managed T2DM. Limited postprandial readings for review. Date Pre Post Pre Post Pre Post HS 01/11 117 01/12 118 01/13 120 01/14 114 01/15 170 01/16 136 01/17 109 01/16 169 01/17 120 01/18 117 01/19 01/20 Diabetes Medications: None Pertinent Labs: 6.7% HgA1c reported Past Medical History: (Last Updated 01/19/22 @ 12:07 by Anne Mcfarlane MD) History of nephrolithiasis Kidney disease Nutrition Rx: Plate Method Nutrition Diagnosis: - Predicted inadequate energy intake r/t small portions and avoiding carbs to manage BG aeb diet recall, pt report and 25# wt loss. - Suboptimal physical activity r/t stage of change aeb pt report of <150 min activity per week Intervention: This participant was very receptive. Provided appropriate educational handouts. Discussed the following topics: Pathophysiology of T2DM and T1 vs T2 differences HgA1c, its correlation to blood glucose numbers Impact of gluconeogenesis on FBG Risk factors for DM Importance of self-monitoring, how often, and when to check. Suggested checking at different times to evaluate meals Plate Method, impact of macronutrients on blood sugar, meal timing, pairing macronutrients Role of physical activity and following provider guidelines for safety Created SMART goals for patient self-care and success. Goals: Try checking a few postprandial blood sugars Introduce more complex carbs into diet Pair carbs with protein Follow-up: [facility] VILLAVICENCIO follow-up in 2-3 weeks Alma Rosario RDN, [facility] Certified Diabetes Care and Full Stack Web Developer P: [phone] Thank you for this referral
== END ==
PROVIDERS: PCP Family Medicine; Referring Provider Family Medicine; Visit Provider Family Medicine
DX: E11.9 Type 2 diabetes mellitus without complications (principal); Z71.3 Dietary counseling and surveillance
CPT/HCPCS: 97802

== ENCOUNTER → 2023-02-02 11:23 | Outpatient (CLI) | payer MEDICARE, OTHER, SELFPAY ==
[2023-02-02 19:53] LABS: Appearance Urine UA CLEAR; Bilirubin Urine UA NEGATIVE (NEGATIVE); Color Urine UA YELLOW; Glucose Urine UA NEGATIVE (Negative); Ketones Urine UA NEGATIVE (NEGATIVE); Leukocyte Esterase Urine UA TRACE (NEGATIVE); Nitrite Urine UA NEGATIVE (Negative); Occult Blood Urine UA NEGATIVE (Negative); Protein Urine UA NEGATIVE (Negative); Specific Gravity Urine UA 1.025 (1.000-1.035); Urobilinogen Urine UA 0.2 E.U./dL (0.2)
[2023-02-02 20:33] LABS: Bacteria Urine Few (2-10); Culture Indicated Urine Specimen Cultured; RBC Urine None Seen (0-5/HPF); Squamous Epithelial Cell Urine 5-10 /HPF (0-5/HPF); WBC Urine 1-5/HPF (0-5/HPF); pH Urine UA 5.5 (4.5-8.0)
== END ==
PROVIDERS: PCP Family Medicine; Visit Provider Specialist
DX: Z87.442 Personal history of urinary calculi (principal)
CPT/HCPCS: 81001; 87086

== ENCOUNTER → 2023-03-10 07:34 | Outpatient (CLI) | payer MEDICARE, OTHER, SELFPAY ==
--- NOTE | 2023-03-10 | DI.MG.S_ITS ---
BILATERAL DIGITAL SCREENING MAMMOGRAM 3D/2D WITH CAD: 03/10/2023 CLINICAL: Routine screening. Comparison is made to exams dated: 10/14/2021 mammogram, 03/30/2019 mammogram, and 12/01/2017 mammogram - [facility]. There are scattered areas of fibroglandular density in both breasts (category b / 25%-50% glandular tissue). Current study was also evaluated with a Computer Aided Detection (CAD) system. No significant masses, calcifications, or other findings are seen in either breast. There has been no significant interval change. IMPRESSION: NEGATIVE There is no mammographic evidence of malignancy. A 1 year screening mammogram is recommended. Based on the Tyrer Cuzick model (a risk assessment model) the patient's lifetime risk is 1.9% and her 10 year risk is 0.0%. According to the ACR, ACS, and NCCN guidelines, an annual breast MRI exam along with mammogram is recommended if the patient's lifetime risk is 20% or greater. This exam was interpreted at Station ID: [id number]. NOTE: For mammograms, a report in lay terms will be sent to the patient. Approximately 15% of breast malignancies will not be visualized mammographically. In the management of a palpable breast mass, a negative mammogram must not discourage biopsy of a clinically suspicious lesion. Electronically Signed By: Theodora david/rober:03/10/2023 14:34:09 letter sent: Normal Exam ACR BI-RADS Category 1: Negative 3341F
--- NOTE | 2023-03-10 07:36 | DI.CT.S_ITS ---
PROCEDURE: CT IVP A/P W/WO INDICATIONS: hematuria TECHNIQUE: Optional 5 mm thick noncontrast images acquired from the diaphragm to the symphysis pubis. After the administration of intravenous contrast, 5 mm thick images acquired from the diaphragm to the symphysis pubis after a 10-minute delay. 2 mm thick coronal and sagittal reformats were then performed of the kidneys and ureters. For radiation dose reduction, the following was used: automated exposure control, adjustment of mA and/or kV according to patient size. COMPARISON: [facility] ([place]), CR, XR KUB, 02/02/2023, 11:24. [facility], CT, CT KIDNEY URETER BLADDER (KUB), 12/30/2021, 14:29. [facility], CT, CT KIDNEY URETER BLADDER (KUB), 11/25/2021, 19:17. FINDINGS: Image quality: Excellent. Lung bases: Lung bases are clear. Heart size is normal. Small hiatal hernia. Urinary system: Suspect a 2.5 x 1.7 cm peripelvic mass in the left kidney, suspicious for neoplasm. Both kidneys are normal in size, without hydronephrosis or nephrolithiasis on pre-contrast images. No perinephric fat stranding. There is normal bilateral renal enhancement. Renal calyces appear normal in morphology when filled with contrast. Opacified portions of both ureters demonstrate normal caliber. Bladder wall appears mildly thickened. No calcified bladder stones. Other solid organs: Liver is normal in size and enhancement. Mild hepatic steatosis. Gallbladder is normal . Biliary system is non dilated. Pancreas enhances normally. Spleen is normal in size and enhancement. No adrenal nodules. Peritoneum and bowel: Bowel loops demonstrate normal wall thickness and caliber. Diverticulosis. No acute diverticulitis. Normal appendix. No free fluid or air. Nodes and vessels: No retroperitoneal or mesenteric adenopathy by size criteria. Aorta and inferior vena cava are normal in size. Abdominal wall: No ventral hernias. Pelvis: No pathologic free pelvic fluid. No inguinal hernias or adenopathy. Bones: No suspicious bony lesions. No vertebral body compression fractures. Moderate degenerative disc and facet disease in lumbar spine. IMPRESSION: 1. Suspect a 2.5 x 1.7 cm peripelvic mass of the left kidney. Central location suggests transitional cell carcinoma. 2. Mild bladder wall thickening may be secondary to incomplete distention. 3. No lymphadenopathy in abdomen or pelvis. Dictated by: Lisa Sandhu M.D. on 03/10/2023 at 10:33 Approved by: Lisa Sandhu M.D. on 03/10/2023 at 10:54
[2023-03-10 09:16] LABS: BUN Creatinine Ratio 13.6 (6-22); Blood Urea Nitrogen 9 mg/dL (7-17); Calcium 9.5 mg/dL (8.4-10.2); Carbon Dioxide 31 mmol/L (22-32); Chloride 102 mmol/L (98-107); Estimated Glomerular Filt Rate > 60 mL/min (>60); Glucose 110 mg/dL (80-110); HEMOLYSIS < 15 (0-50); Sodium 140 mmol/L (137-145)
== END ==
PROVIDERS: PCP Family Medicine; Referring Provider Specialist; Visit Provider Specialist
DX: Z12.31 Encounter for screening mammogram for malignant neoplasm of breast (principal); R31.9 Hematuria, unspecified; K44.9 Diaphragmatic hernia without obstruction or gangrene; K76.0 Fatty (change of) liver, not elsewhere classified; K57.90 Diverticulosis of intestine, part unspecified, without perforation or abscess without bleeding
CPT/HCPCS: 36415; 74178; 77063; 77067; 80048; Q9967

== ENCOUNTER → 2023-03-25 15:08 | Outpatient (CLI) | payer MEDICARE, OTHER, SELFPAY ==
--- NOTE | 2023-03-25 15:10 | DI.MRI.S_ITS ---
PROCEDURE: MR ABDOMEN RENAL PROTOCOL INDICATIONS: left renal mass per radiologist report of CT scan 03/10/2023 TECHNIQUE: Coronal HASTE through abdomen and pelvis; axial 2D FLASH in- and [id number] (with and without fat saturation), and breath-hold T2 FSE from the hepatic dome to the bottom of the kidneys. Coronal HASTE MR urogram of kidneys and bladder. Dynamic coronal VIBE during IV gadolinium administration; postgadolinium axial VIBE or 2D FLASH with fat saturation from the hepatic dome through the kidneys. COMPARISON: [facility], CT, CT IVP A/P W/WO, 03/10/2023, 9:27. FINDINGS: Image quality: Good Lower chest: Lung bases are unremarkable on limited MRI evaluation. No pleural effusions. Solid organs: The liver is unremarkable. Gallbladder is unremarkable. No pathologic biliary ductal dilation or pancreatic ductal dilation. There is a possible 7 millimeter pancreatic body cyst (/). No splenomegaly. No adrenal nodules. No hydronephrosis. There are renal cysts bilaterally. No definite solid malignant renal mass. The previously mentioned peripelvic possible mass follows the enhancement pattern of the surrounding parenchyma on all contrast phases in all sequences, suggestive of a hypertrophied central renal column Vessels and lymph nodes: No abdominal aortic aneurysm. No pathologic lymph nodes by size criteria. Bowel and peritoneum: No evidence of small bowel obstruction. Surround the ileocecal valve, there is prominent T1 signal, possibly representing stool, correlate with age-appropriate colonoscopy results. Colonic diverticula are present. Body wall: Unremarkable. Rectus diastasis. Bones: Degenerative changes, no acute or suspicious abnormality. IMPRESSION: The previously mentioned left renal mass appears to be a prominent central column, as it follows the surrounding parenchyma appearance on all sequences. This was also seen in [address] There is also a possible 7 millimeter pancreatic body cyst. Other findings as above. Follow-up is reasonable in 6 months or sooner to ensure stability. Dictated by: Nilson Arias M.D. on 03/25/2023 at 16:19 Approved by: Nilson Arias M.D. on 03/25/2023 at 16:29
== END ==
PROVIDERS: PCP Family Medicine; Referring Provider Specialist; Visit Provider Specialist
DX: N28.89 Other specified disorders of kidney and ureter (principal); N28.1 Cyst of kidney, acquired; M62.08 Separation of muscle (nontraumatic), other site
CPT/HCPCS: 74183

== ENCOUNTER → 2024-06-13 12:27 | Outpatient (CLI) | payer MEDICARE, OTHER, SELFPAY ==
--- NOTE | 2024-06-13 12:32 | DI.MG.S_ITS ---
BILATERAL DIGITAL SCREENING MAMMOGRAM 3D/2D WITH CAD: 06/13/2024 CLINICAL: Routine screening. Comparison is made to exams dated: 03/10/2023 mammogram, 10/14/2021 mammogram, 03/30/2019 mammogram, and 12/01/2017 mammogram - . There are scattered areas of fibroglandular density (category b / 25%-50% glandular tissue). Current study was also evaluated with a Computer Aided Detection (CAD) system. No significant masses, calcifications, or other findings are seen in either breast. There has been no significant interval change. IMPRESSION: NEGATIVE There is no mammographic evidence of malignancy. A 1 year screening mammogram is recommended. Based on the Tyrer Cuzick model (a risk assessment model) the patient's lifetime risk is 1.8% and her 10 year risk is 0.0%. According to the ACR, ACS, and NCCN guidelines, an annual breast MRI exam along with mammogram is recommended if the patient's lifetime risk is 20% or greater. This exam was interpreted at Station ID: [id number]. NOTE: For mammograms, a report in lay terms will be sent to the patient. Approximately 15% of breast malignancies will not be visualized mammographically. In the management of a palpable breast mass, a negative mammogram must not discourage biopsy of a clinically suspicious lesion. Electronically Signed By: Theodora Christopher M.D., Ph.D. blanco/rober:06/14/2024 20:32:16 letter sent: Normal Exam ACR BI-RADS Category 1: Negative
--- NOTE | 2024-06-13 12:32 | DI.MRI.S_ITS ---
PROCEDURE: MR ABDOMEN WO/W CON INDICATIONS: ROUTINE SCREENING / RENAL MASS LT,PANCREATIC CYST TECHNIQUE: Coronal HASTE through abdomen and pelvis; axial 2D FLASH in- and [id number] (with and without fat saturation), and breath-hold T2 FSE from the hepatic dome to the bottom of the kidneys. Coronal HASTE MR urogram of kidneys and bladder. Dynamic coronal VIBE during IV gadolinium administration; postgadolinium axial VIBE or 2D FLASH with fat saturation from the hepatic dome through the kidneys. COMPARISON: [facility], MR, MR ABDOMEN RENAL PROTOCOL, 03/25/2023, 15:33. FINDINGS: Image quality: Diagnostic Lower chest: Unremarkable lung bases Liver: Mild hepatic steatosis. Gallbladder and biliary system: Unremarkable gallbladder. CBD is 6-7 millimeters, upper limit of normal. Pancreas: 7 millimeter cyst at the pancreatic tail without nodular enhancement or ductal dilation is present. Another small cyst at the inferior body is also stable. Spleen: Nonenlarged Adrenals: No discrete nodules Kidneys: No solid mass. No hydronephrosis. Vessels and lymph nodes: The main portal vein is patent. No pathologic lymph nodes by size criteria. Bowel and peritoneum: No evidence of small bowel obstruction. No pathologic ascites. Body wall: Unremarkable Bones: No acute or suspicious osseous finding. IMPRESSION: Stable small pancreatic cystic lesion at the tail. Other smaller cystic lesion at the inferior body is also stable. No ductal dilation or suspicious enhancement. Continue follow-up may be obtained at clinical discretion in 1-2 years. Prominent left renal pyramid is stable. No solid renal mass. Other findings above Dictated by: Nilson Arias M.D. on 06/14/2024 at 8:36 Approved by: Nilson Arias M.D. on 06/14/2024 at 8:44
== END ==
PROVIDERS: PCP Family Medicine; Referring Provider Physician Assistant; Visit Provider Physician Assistant
DX: Z12.31 Encounter for screening mammogram for malignant neoplasm of breast (principal); K86.2 Cyst of pancreas; N28.89 Other specified disorders of kidney and ureter; K76.0 Fatty (change of) liver, not elsewhere classified
CPT/HCPCS: 74183; 77063; 77067; A9579

== ENCOUNTER → 2025-06-01 13:08 | Outpatient (CLI) | payer MEDICARE, OTHER, SELFPAY ==
--- NOTE | 2025-06-01 13:10 | DI.MRI.S_ITS ---
PROCEDURE: MR ABDOMEN RENAL PROTOCOL INDICATIONS: surveillance of left renal mass; pancreatic cyst TECHNIQUE: Coronal HASTE through abdomen and pelvis; axial 2D FLASH in- and [id number] (with and without fat saturation), and breath-hold T2 FSE from the hepatic dome to the bottom of the kidneys. Coronal HASTE MR urogram of kidneys and bladder. Dynamic coronal VIBE during IV gadolinium administration; postgadolinium axial VIBE or 2D FLASH with fat saturation from the hepatic dome through the kidneys. COMPARISON: [facility], MR, MR ABDOMEN RENAL PROTOCOL, 03/25/2023, 15:33. [facility], MR, MR ABDOMEN WO/W CON, 06/13/2024, 13:52. FINDINGS: Image quality: Diagnostic Lower chest: Unremarkable lung bases Liver: Unremarkable Gallbladder and biliary system: Nondilated. Possible artifact versus small gallstone is present on series 6. Pancreas: No ductal dilation. No suspicious enhancing mass Pancreatic small cystic lesions are present, largest at the tail measuring 7 mm, similar. Spleen: Nonenlarged Adrenals: No discrete nodules Kidneys: There is a similar left prominent renal pyramid No suspicious enhancing mass. Vessels and lymph nodes: No abdominal aortic aneurysm. No enlarged lymph nodes by size criteria. Main portal vein appears patent. Bowel and peritoneum: Moderate colonic fecal loading. No ascites or obstruction. Colonic diverticula are seen. Body wall: Unremarkable Bones: Degenerative changes. No aggressive appearing osseous enhancement IMPRESSION: Similar pancreatic cystic lesions possibly small IPMNs. Largest measures 7 mm at the pancreatic tail. Continue follow-up may be obtained at clinical discretion. Similar prominent left mid renal pyramid, without suspicious enhancing soft tissue mass identified. Other findings above. Dictated by: Nilson Arias M.D. on 06/03/2025 at 9:58 Approved by: Nilson Arias M.D. on 06/03/2025 at 10:04
== END ==
LOC: MRI 13:10
PROVIDERS: PCP Physician Assistant; Referring Provider Physician Assistant; Visit Provider Physician Assistant
DX: K86.2 Cyst of pancreas (principal); N28.89 Other specified disorders of kidney and ureter
CPT/HCPCS: 74183; A9579